=== PATIENT | female | born 2000 | race Caucasian/White ===

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

== ENCOUNTER 2020-05-05 03:19 | Emergency (ER) | payer OTHER ==
[~2020-05-05] VITALS: Ht 154.9 cm; Wt 61.2 kg
[~2020-05-05 03:19] MED LIST: KEFLEX500 M1 PO; NF
[2020-05-05 04:13] LABS: ABSOLUTE NEUTROPHILS 6.6 thou/uL (1.4-8.2); BASOPHILS 0.5 % (0.0-2.0); EOSINOPHILS 1.3 % (0.0-3.0); HEMATOCRIT 41.8 % (37.0-47.0); HEMOGLOBIN 14.3 gm/dL (12.0-15.0); LYMPHOCYTES 22.1 % (24.0-44.0); MCHC 34.2 g/dL (28.0-37.0); MCV 87.9 fL (80.0-100.0); MONOCYTES 5.1 % (1.0-8.0); PLATELET COUNT 251 thou/uL (150-400); RBC 4.76 mil/uL (4.20-5.00); RDW 12.2 % (10.5-14.5); WBC 9.3 thou/uL (4.0-11.0)
[2020-05-05 04:21] LABS: ANION GAP 10 mmol/L (7-16); BUN 24 mg/dL (7-18); CALCIUM 9.3 mg/dL (8.5-10.1); CHLORIDE 99 mmol/L (98-107); CO2 26 mmol/L (21-32); CREATININE 0.9 mg/dL (0.6-1.0); GLUCOSE 88 mg/dL (74-106); POTASSIUM 3.5 mmol/L (3.5-5.1); SODIUM 135 mmol/L (136-145)
[2020-05-05 04:31] LABS: ALBUMIN 4.7 g/dL (3.4-5.0); SGOT 19 U/L (15-37); SGPT 19 U/L (30-65); TOTAL BILIRUBIN 0.4 mg/dL (0.2-1.0); TOTAL PROTEIN 8.2 g/dL (6.4-8.2); TROPONIN-I <0.06 ng/mL (<0.06)
[2020-05-05 04:52] LABS: URINE BILIRUBIN NEGATIVE (Negative); URINE BLOOD 1+ (Negative); URINE CLARITY CLEAR; URINE COLOR YELLOW; URINE GLUCOSE-RANDOM* NEGATIVE (Negative); URINE KETONES NEGATIVE (Negative); URINE NITRITE-REFLEX NEGATIVE (Negative); URINE PROTEIN (DIPSTICK) NEGATIVE (Negative); URINE SPECIFIC GRAVITY >= 1.030 (1.005-1.035); URINE UROBILINOGEN 0.2 E.U./dl (0.2-1.0)
[2020-05-05 04:57] LABS: URINE LEUKOCYTES-REFLEX 1+ (Negative)
[2020-05-05 04:59] LABS: CASTS None Seen /LPF (None Seen); CRYSTALS None Seen /LPF (None Seen); MUCUS 0-3 Light strn/LPF (None Seen); SQUAMOUS 4-10 Moderate /LPF (0-3); URINE RBC 3-10 Few /HPF (0-2); URINE WBC-REFLEX 6-15 Few /HPF (0-5)
[2020-05-05 05:12] VITALS: BP 119/74
--- NOTE | 2020-05-07 07:39 | EKG ---
[facility] [place] [address] ELECTROCARDIOGRAM REPORT Name: JENNIFER TUCKER Room #: [facility]#: [id number] Admission: 05/05/20 Attend Phys: Discharge: 05/05/20 Date of : [birth year] Report #: [id number] THIS REPORT FOR: cc: MARTI - Nicolasa family physician/PCP MARTI - Nicolasa family physician/PCP Nathan Hernandez MD [facility] THIS REPORT FOR: //name// [facility] ED Test Date: 2020-05-05 Test Time: 03:49:03 Pat Name: JENNIFER TUCKER Department: Room: Gender: F X Ray Physician: : 2000 Requested By: Judd Mark Order Number: [id number] MD: Nathan Hernandez Measurements Intervals [place] Rate: 94 P: 70 MO: 136 QRS: 19 QRSD: 110 T: 32 QT: 360 QTc: 451 Interpretive Statements Sinus rhythm Low voltage No previous ECG available for comparison Electronically Signed On 05-07-2020 7:39:26 CDT by Nathan Hernandez [email or web address] <ELECTRONICALLY SIGNED> By: Nathan Hernandez MD, [facility] 05/07/20 [id number] Nathan Hernandez MD, FAC /EPI
== END 2020-05-05 05:26 | disposition home or self-care (01) ==
LOC: ER 03:19
PROVIDERS: Emergency Medicine
DX: R55 Syncope and collapse (principal); J06.9 Acute upper respiratory infection, unspecified; Z20.828 Contact with and (suspected) exposure to other viral communicable diseases; F17.210 Nicotine dependence, cigarettes, uncomplicated; Z79.899 Other long term (current) drug therapy

== ENCOUNTER 2020-10-12 13:15 | Emergency (ER) | payer OTHER ==
[~2020-10-12] VITALS: Ht 154.9 cm; Wt 63.5 kg
[2020-10-12 13:19] VITALS: BP 109/60
[2020-10-12] MEDS ORDERED: PROMETH-CODEIN 65 ML PO (15:11)
[2020-10-12] MEDS ORDERED: ONDANSETRON HCL4 M2 PO (15:11)
--- NOTE | 2020-10-12 20:46 | NUR ---
POSITIVE COVID RESULTS CALLED BY ENDER PRECIADO AT THIS TIME
== END 2020-10-12 15:38 | disposition home or self-care (01) ==
LOC: ER 13:15
DX: U07.1 COVID-19 (principal); F17.210 Nicotine dependence, cigarettes, uncomplicated; Z98.890 Other specified postprocedural states

== ENCOUNTER 2021-03-14 11:35 | Emergency (ER) | payer OTHER ==
[~2021-03-14] VITALS: Ht 154.9 cm; Wt 59.0 kg
[~2021-03-14 11:35] MED LIST changes: +ONDANSETRON HCL4 M2 PO; +PROMETH-CODEIN 65 ML PO
[2021-03-14] MEDS ORDERED: MOVANA300 MG PO (12:24)
[2021-03-14 13:07] LABS: AMP/METHAMP Negative (Negative); BARBITURATES Negative (Negative); BENZODIAZEPINES Negative (Negative); COCAINE Negative (Negative); METHADONE Negative (Negative); OPIATES Negative (Negative); PCP Negative (Negative)
[2021-03-14 13:54] LABS: BASOPHILS 0.4 % (0.0-2.0); EOSINOPHILS 1.3 % (0.0-3.0); HEMATOCRIT 39.6 % (37.0-47.0); HEMOGLOBIN 13.3 gm/dL (12.0-15.0); LYMPHOCYTES 21.7 % (24.0-44.0); MCHC 33.6 g/dL (28.0-37.0); MCV 89.2 fL (80.0-100.0); MONOCYTES 3.4 % (1.0-8.0); PLATELET COUNT 227 thou/uL (150-400); POLYS 73.2 % (36.0-66.0); RBC 4.44 mil/uL (4.20-5.00); RDW 12.6 % (10.5-14.5); WBC 8.2 thou/uL (4.0-11.0)
[2021-03-14 14:13] LABS: CALCIUM 9.3 mg/dL (8.5-10.1); CREATININE 0.9 mg/dL (0.6-1.0); POTASSIUM 3.5 mmol/L (3.5-5.1)
[2021-03-14 14:15] LABS: SALICYLATE < 2.8 mg/dL (2.8-20.0)
[2021-03-14 14:22] LABS: ALBUMIN 4.2 g/dL (3.4-5.0); TOTAL BILIRUBIN 0.3 mg/dL (0.2-1.0); TOTAL PROTEIN 7.6 g/dL (6.4-8.2)
[2021-03-14 16:02] LABS: URINE BILIRUBIN NEGATIVE (Negative); URINE BLOOD NEGATIVE (Negative); URINE CLARITY CLEAR; URINE COLOR YELLOW; URINE GLUCOSE-RANDOM* NEGATIVE (Negative); URINE KETONES NEGATIVE (Negative); URINE LEUKOCYTES-REFLEX NEGATIVE (Negative); URINE NITRITE-REFLEX NEGATIVE (Negative); URINE PROTEIN (DIPSTICK) NEGATIVE (Negative); URINE UROBILINOGEN 0.2 E.U./dl (0.2-1.0)
[2021-03-14 17:30] VITALS: BP 99/54
== END 2021-03-14 17:30 | disposition home or self-care (01) ==
LOC: ER 11:35
PROVIDERS: Physician Assistant
DX: F41.9 Anxiety disorder, unspecified (principal); F31.9 Bipolar disorder, unspecified; F17.210 Nicotine dependence, cigarettes, uncomplicated; Z98.890 Other specified postprocedural states; Z79.899 Other long term (current) drug therapy